=== PATIENT | female | born 1965 | race Caucasian/White ===

== ENCOUNTER 2022-04-09 13:30 | Outpatient (REF) | payer OTHER, SELFPAY ==
[2022-04-10 08:23] LABS: HBS Num1 0.68 mIU/mL (0-7.99); ~Hepatitis B Surface Antibody NONREACTIVE (Nonreactive)
[2022-04-10 17:33] LABS: Mumps Virus IgG Antibody >300.00 AU/mL; Rubeola IgG (Measles) <13.50 AU/mL
== END 2022-04-09 13:31 | disposition home or self-care (01) ==
LOC: HO.MANLDS 13:30
PROVIDERS: Visit Provider Internal Medicine
DX: Z01.84 Encounter for antibody response examination (principal); Z11.1 Encounter for screening for respiratory tuberculosis
CPT/HCPCS: 36415; 86706; 86735; 86762; 86765; 86787